=== PATIENT | female | born 1955 | race Caucasian/White ===

== ENCOUNTER 2024-06-19 09:55 | Outpatient (AMB) | payer MEDICARE, SELFPAY ==
--- NOTE | 2024-06-19 10:01 | A.OFFPC_ITS ---
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: No Is last menstrual period known: No Post menopausal: No Patient : No Allergies No Known Allergies Allergy (Verified 06/19/24 10:07) Tobacco use date assessed: 06/19/24 Fall risk assessment: No Falls in past year Last assessed Fall Risk: 06/19/24 Dental Screening Dental Screen Date: 06/19/24 Did you have a dental visit in the last 12 months?: Yes Did you have a dental problem in the last 6 months where you did not have access to dental care?: No Was dental information given to patient?: Patient has dentist HPI HPI Comments History of Present Illness Details This is a 68-year-old female with a past medical history of chronic insomnia, IBS, frequent UTIs and dense breast tissue presenting for follow up. She transferred from my panel at [facility]. Her daughter just gave to another grandchild. Now she has 2 granddaughters and 2 grandsons. The patient and her purchased a place down in [place]. They are retired. She does not have any immediate plans to travel there, but she is taking a trip out to [place] to visit family. She has a history of right cataract removal. She is having her left cataract removed with Dr. York on 06/24/2024. Osteopenia-she just had a bone density exam ordered by her farmworker vegetable, Sami Pascual. She is just waiting for the results. She also had a screening mammogram and screening bilateral breast ultrasound which showed no evidence of malignancy. IBS-the patient is followed by Rodriuge Lo. She is currently on Colace and psyllium, but she does not feel like it is helping very much so the message and delivery service pricer has requested lab tests and stool samples. Insomnia-she continues to struggle with this. It worsened after menopause. She has tried sleep hygiene, homeopathic remedies, THC gummies, melatonin, trazodone, benazepril. She is currently on amitriptyline. It is not helping. She takes 10 mg at night. Frequent UTIs-patient was seen by Urology and Urogynecology more than once. She also had a CT scan of the abdomen and pelvis within the past year which showed no pathologic cause for UTIs. ROS: Constitutional: No unexplained weight loss, fever, chills, fatigue or night sweats. Respiratory: No shortness of breath Cardiovascular: No chest pain Neurologic: No headache, dizziness, syncope, Psychiatric: No depression or anxiety. No SI/HI. Physical exam: Constitutional: Alert, in no distress. Respiratory: Clear to auscultation. Cardiovascular: S1 S2 regular. No murmurs Neurologic: No focal neurological deficits. Extremities: Warm and well perfused. No clubbing, cyanosis or edema. Psychiatric: Normal mood and affect [facility] Medical History (Updated 06/19/24 @ 10:54 by WILLIS Marrero) Dense breast tissue Frequent UTI Insomnia Cataract Irritable bowel syndrome (IBS) Surgical History (Updated 06/19/24 @ 10:26 by WILLIS Marrero) H/O bilateral cataract extraction Family History (Updated 06/19/24 @ 10:12 by Mansi Hall) Father Alcohol abuse Cancer Sister Cancer Social History Housing: House Patient Tobacco Use Status: Never used Tobacco e-Cigarette/Vaping Use: Never Used Second Hand Smoke Exposure: No service: No Current occupational status: retired Current occupational exposures/hazards: No Cognitive needs: No Hearing needs: No Vision needs: Yes Questionnaire PHQ-9 Over the last 2 weeks, how often have you been bothered by any of the following problems? 1. Little interest or pleasure in doing things: not at all 2. Feeling down, depressed, or hopeless: not at all 3. Trouble falling or staying asleep, or sleeping too much: several days 4. Feeling tired or having little energy: not at all 5. Poor appetite or overeating: not at all 6. Feeling bad about yourself - or that you are a failure or have let yourself or your family down: not at all 7. Trouble concentrating on things, such as reading the newspaper or watching television: not at all 8. Moving or speaking so slowly that other people could have noticed. Or the opposite - being so fidgety or restless that you have been moving around a lot more than usual: not at all 9. Thoughts that you would be better off or of hurting yourself in some way: not at all Total score: 1 Depression Screening Interpretation: Negative Depression Screening Done: Yes 02133 - PHQ-9 Billing: Yes Source: Developed by Drs. Jose Chong, Jacqueline Rice, Clarence Alba and colleagues, with an educational sal from [employer]. Thrive Questionnaire Date Thrive assessed: 06/19/24 I am a: Patient What is your living situation today?: I have a steady place to live Within the past 12 months, did the food you bought not last and you didn't have the money to get more?: Never true Within the past 12 months, did you worry whether your food would run out before you got money to buy more?: Never true Do you have trouble paying for medicines?: No Do you have trouble getting transportation to medical appointments?: No Do you have trouble paying your heating and electricity bill?: No Do you have trouble taking care of your child, family member or friend?: No Do you have trouble with day-to-day activities such as bathing, preparing meals, shopping, managing finances, etc.?: No Are you currently unemployed and looking for a job?: No Are you interested in more education?: No Please select the resources that you would like help with: None Currently or been in a relationship where the following occur: No concerns reported THRIVE Score: 0 AUDIT C Alcohol Use Questionnaire (AUDIT-C) 1. How often do you have a drink containing alcohol?: Never Total Score: 0 Score Reviewed/Action Taken: Yes WADE-7 AMB Questionnaire WADE-7 Date WADE - 7 assessed: 06/19/24 Feeling nervous, anxious, or on edge: 0 = Not at all Not being able to stop or control worryin = Not at all Worrying too much about different things: 0 = Not at all Trouble relaxin = Several days Being so restless that it is hard to sit still: 1 = Several days Becoming easily annoyed or irritable: 1 = Several days Feeling afraid as if something awful might happen: 0 = Not at all Total WADE-7 score (0-4 normal; 5-9 mild; 10-14 moderate; 15-21 severe): 3 Source: Developed by Drs. Jose Chong, Jacqueline Rice, Clarence Alba and colleagues, with an educational sal from [employer]. WADE-7 Assessment Billing WADE-7 Assessment Tool: WADE-7 Assessment 63607 Physical exam (Primary Care) Vital Signs: Last Vital Signs Temp 97.5 F 06/19/24 10:13 Pulse 63 06/19/24 10:13 Resp 16 06/19/24 10:13 BP 132/80 06/19/24 10:13 Pulse Ox 99 06/19/24 10:13 Oxygen Delivery Method Room Air 06/19/24 10:13 BMI result Body Mass Index 23.6 Tobacco/Smoking Status: Tobacco use Status Tobacco use date assessed 06/19/24 06/19/24 10:09 Patient Tobacco Use Status Never used Tobacco 06/19/24 10:09 e-Cigarette/Vaping Use Never Used 06/19/24 10:09 PHQ-9: PHQ-9 Score PHQ-9: Total score 1 06/19/24 10:24 Depression Screening Interpretation: Negative Thrive Assessment: Date of Thrive Assessment Date Thrive assessed 06/19/24 06/19/24 10:16 Currently or been in a relationship where the following occur: No concerns reported Assessment and Plan Assessment & Plan (1) Insomnia: Code(s): G47.00 - Insomnia, unspecified Qualifiers: Insomnia type: primary Qualified Code(s): F51.01 - Primary insomnia Plan: Because the patient has failed first-line treatments we will proceed with a trial of Ambien 5 mg. Instructed to take this immediately before bedtime. We discussed it is a habit forming controlled substance. We discussed side effects including abnormal sleep behaviors and parasomnias. Patient advised not to drink alcohol with this medication. She needs to plan for at least 8 hours of sleep after taking the medication. If it is ineffective or she does not tolerate it we can consider trying Lunesta. (2) Irritable bowel syndrome (IBS): Code(s): K58.9 - Irritable bowel syndrome without diarrhea Qualifiers: Irritable bowel syndrome type: with constipation Qualified Code(s): K58.1 - Irritable bowel syndrome with constipation Plan: Patient will follow up with her message and delivery service pricer and have testing done that was ordered by her. Plan Follow up in 6 months for annual wellness exam. Medications: New zolpidem (Ambien) 5 mg PO BEDTIME PRN 30 tabs 0RF insomnia Coding Level of Care Code Est Pt Level 4 (76607) Complex EM visit Add On G2211 Diagnoses Primary insomnia F51.01 Insomnia type: primary Irritable bowel syndrome with constipation K58.1 Irritable bowel syndrome type: with constipation Additional Codes WADE-7 Assessment Billing - WADE-7 Assessment Tool: WADE-7 Assessment [id number] ([id number])
[2024-06-19 10:13] VITALS: BP 132/80; PULSE 63; RESP 16; TEMP 36.4; O2SAT 99; BMI 23.6
== END 2024-06-19 10:48 | disposition home or self-care (01) ==
PROVIDERS: PCP Physician Assistant Medical; Visit Provider Physician Assistant Medical
DX: F51.01 Primary insomnia (principal); K58.1 Irritable bowel syndrome with constipation
CPT/HCPCS: 99214; G2211

== ENCOUNTER 2024-06-23 13:22 | Outpatient (REF) | payer MEDICARE, SELFPAY ==
[2024-06-23 17:39] LABS: Hematocrit 36.4 % (37.0-47.0); Hemoglobin 12.4 g/dl (12.0-16.0); Mean Corpuscular HGB Conc 34.1 g/dl (31.0-35.0); Mean Corpuscular Hemoglobin 32.8 pg (27.0-33.0); Mean Corpuscular Volume 96.3 fL (80.0-98.0); Mean Platelet Volume 9.3 fL (9.4-12.3); Platelet Count 283 X10*3/uL (160-400); Red Blood Count 3.78 X10*6/uL (4.20-5.50); Red Cell Distribution Width 12.4 % (11.0-16.0)
[2024-06-23 18:07] LABS: Alanine Aminotransferase 13 U/L (0-31); Albumin Level 4.3 g/dL (3.5-5.0); Alkaline Phosphatase 65 U/L (39-117); Anion Gap 15 (12-20); Aspartate Amino Transferase 16 U/L (5-31); Blood Urea Nitrogen 13 mg/dL (9-16); Calcium 9.7 mg/dL (8.4-10.2); Carbon Dioxide 25 mmol/L (22-29); Chloride 101 mmol/L (96-108); Cholesterol 259 mg/dL (<200); Estimated Glomerular Filt Rate > 60; Glucose Random 99 mg/dL (60-115); HDL Cholesterol 77 mg/dL (>40); LDL Cholesterol Calculated 170 mg/dL (<100); Potassium 4.1 mmol/L (3.3-5.1); Sodium 137 mmol/L (135-145); Total Protein 6.9 g/dL (6.5-8.0); Triglycerides 60 mg/dL (<150)
[2024-06-27 05:25] LABS: VITAMIN D (1,25 OH) D3 44 pg/mL; Vit D (1,25-Dihydroxy) Total 44 pg/mL (18-72); Vitamin D (1,25 OH) D2 <8 pg/mL
== END 2024-06-23 13:23 | disposition home or self-care (01) ==
LOC: HO.WFDLDS 13:22
PROVIDERS: Visit Provider Physician Assistant Medical
DX: M85.80 Other specified disorders of bone density and structure, unspecified site (principal); N39.0 Urinary tract infection, site not specified; F51.01 Primary insomnia; Z13.6 Encounter for screening for cardiovascular disorders
CPT/HCPCS: 36415; 80053; 80061; 82652; 85027

== ENCOUNTER 2024-07-03 12:50 | Outpatient (AMB) | payer MEDICARE, SELFPAY ==
--- NOTE | 2024-07-03 12:41 | MHC.PC.OV ---
Intake Visit Reasons: Discuss alternative medication for sleep Intake Note: Discuss alternative medication for sleep. Allergies No Known Allergies Allergy (Verified 07/03/24 12:44) Tobacco use date assessed: 06/19/24 Dental Screening Dental Screen Date: 06/19/24 HPI HPI Comments History of Present Illness Details This is a 68-year-old female with a past medical history of frequent UTIs, insomnia and hyperlipidemia presenting to discuss her sleep medication. The patient tried Ambien. It was not effective, and she feels more irritable. She stopped taking it Sunday. We reviewed her cholesterol profile again. LDL 170. ASCVD risk score is 6.6%. Her mother has high cholesterol. Patient does not smoke. She follows a healthy diet. She is not overweight. ROS: Constitutional: No unexplained weight loss, fever, chills Psychiatric: No SI/HI. PFSH Medical History (Updated 06/24/24 @ 09:24 by WILLIS Marrero) Pure hypercholesterolemia Abnormal CBC Osteopenia Dense breast tissue Frequent UTI Insomnia Cataract Irritable bowel syndrome (IBS) Surgical History (Updated 06/19/24 @ 10:26 by WILLIS Marrero) H/O bilateral cataract extraction Family History (Updated 06/19/24 @ 10:12 by Mansi Hall) Father Alcohol abuse Cancer Sister Cancer Social History Housing: House Patient Tobacco Use Status: Never used Tobacco e-Cigarette/Vaping Use: Never Used Second Hand Smoke Exposure: No service: No Current occupational status: retired Current occupational exposures/hazards: No Cognitive needs: No Hearing needs: No Vision needs: Yes Questionnaire Thrive Questionnaire Date Thrive assessed: 06/19/24 WADE-7 AMB Questionnaire WADE-7 Date WADE - 7 assessed: 06/19/24 Source: Developed by Drs. Jose Chong, Jacqueline Rice, Clarence Alba and colleagues, with an educational sal from [employer]. Physical exam (Primary Care) Tobacco/Smoking Status: Tobacco use Status Tobacco use date assessed 06/19/24 07/03/24 12:42 Patient Tobacco Use Status Never used Tobacco 07/03/24 12:42 e-Cigarette/Vaping Use Never Used 07/03/24 12:42 Thrive Assessment: Date of Thrive Assessment Date Thrive assessed 06/19/24 07/03/24 12:42 Telehealth Telehealth Telehealth Platform: Telephone Location of provider rendering services: practice address Location of patient: address on file Patient Identification confirmed using: Name, : Yes Telehealth method: voice only Patient verbally consented to treatment: Yes Patient verbally consented to billing insurance company: Yes Patient informed of any privacy concerns related to visit: Yes Minutes spent on Phone/Video with Pt.: 10 Assessment and Plan Assessment & Plan (1) Pure hypercholesterolemia: Code(s): E78.00 - Pure hypercholesterolemia, unspecified (2) Insomnia: Code(s): G47.00 - Insomnia, unspecified Qualifiers: Insomnia type: primary Qualified Code(s): F51.01 - Primary insomnia Plan The patient and I had a discussion regarding treatment of elevated cholesterol and statins. Patient agreeable to low-dose statin trial. Sent atorvastatin 10 mg at bedtime. Side effects and administration reviewed. Return in 6 weeks to the lab to check LFTs and lipid panel. Reviewed sleep hygiene. Patient defers referral to sleep Medicine. She will try Lunesta 1 mg nightly. Side effects and administration reviewed. Advised patient to take it immediately before bedtime and schedule at least 8 hours for sleep following administration. Do not drive or operate heavy machinery. Do not drink alcohol with this medicine. She can call after trying Lunesta to follow up. Orders: Orders Alanine Aminotransferase Today R79.89 - Other specified abnormal findings of blood chemistry Aspartate Amino Transferase Today R79.89 - Other specified abnormal findings of blood chemistry Lipid Panel 6 Weeks E78.00 - Pure hypercholesterolemia, unspecified Medications: New eszopiclone (Lunesta) 1 mg PO BEDTIME 7 tabs 0RF insomnia atorvastatin 10 mg PO BEDTIME 90 tabs 0RF Discontinued zolpidem (Ambien) Discontinued Reason: Doctor's Order 5 mg PO BEDTIME PRN 30 tabs 0RF insomnia Coding Level of Care Code Tele Est Pt Level 3 (30635) Complex EM visit Add On G2211 Diagnoses Pure hypercholesterolemia E78.00 Primary insomnia F51.01 Insomnia type: primary
== END 2024-07-03 14:14 | disposition home or self-care (01) ==
LOC: HO.HMGFM 12:51
PROVIDERS: PCP Physician Assistant Medical; Visit Provider Physician Assistant Medical
DX: E78.00 Pure hypercholesterolemia, unspecified (principal); F51.01 Primary insomnia
CPT/HCPCS: 99441

== ENCOUNTER 2024-12-09 10:56 | Outpatient (REF) | payer MEDICARE, SELFPAY ==
[2024-12-09 14:07] LABS: Appearance Urine Clear; Color Urine Yellow; Glucose Urine UA Negative (Negative); Leukocyte Esterase Urine Small (1+) (Negative); Nitrite Urine Positive (Negative); UMIC TRIGGER UA YES; Urine Blood Trace (Negative); Urine Ketones Negative (Negative); Urine Protein Negative (Neg-Trace)
[2024-12-09 14:10] LABS: Bacteria Urine 4+ (None Seen); Hyaline Casts Urine 0-2 /LPF (0-2); Squamous Epithelial Cell Urine 0-2 /HPF (0-2)
== END 2024-12-09 10:57 | disposition home or self-care (01) ==
LOC: HO.WFDLDS 10:56
PROVIDERS: Visit Provider Physician Assistant Medical
DX: R39.9 Unspecified symptoms and signs involving the genitourinary system (principal)
CPT/HCPCS: 81001; 87086; 87088; 87186

== ENCOUNTER 2024-12-22 08:22 | Outpatient (AMB) | payer MEDICARE, SELFPAY ==
[2024-12-22 08:30] VITALS: BP 120/80; PULSE 72; O2SAT 100; BMI 24.0
--- NOTE | 2024-12-22 08:30 | AM.OFFVISMDC ---
Intake Vital Signs 12/22/24 08:30 Height 5 ft 2 in Weight 131 lb 2 oz BMI 24.0 BP 120/80 Blood Pressure Location Rt brachial Position Sitting Pulse 72 Pulse Source Pulse Oximeter Pulse Oximetry (%) 100 Oxygen Delivery Method Room Air Intake Visit Reasons: annual wellness visit Allergies No Known Allergies Allergy (Verified 12/22/24 08:31) Medication List - Last Reconciled 12/22/24 by WILLIS Marrero cephalexin 500 mg PO TID 10 days mupirocin 2% 1 appl topical BID 10 days HPI HPI Comments History of Present Illness Details This is a 69-year-old female with a past medical history of chronic insomnia, IBS, frequent UTIs and dense breast tissue presenting for an annual wellness visit. She has several concerns today. Patient has developed a rash that started in January or February of 2023. She says there are little red bumps on her upper body only which then open up in 2 small ulcers and heel. They leave small scars. The ones on her back itch. She has a applied mant-mcs-bjrmyoz remedies. She is using products without fragrance and tried switching her soap and detergents, but nothing improves it. She has a community health specialist, but she has not discussed it with them. She has chronic fatigue. She has chronic insomnia. She has tried sleep hygiene, homeopathic remedies, THC gummies, Lunesta, Ambien, melatonin, trazodone, amitriptyline. They are not effective. She had bilateral cataracts removed with Dr. York last year. Patient wants to get her prescription glasses adjusted because it is difficult to walk down the stairs when she has her glasses on. She has concerns about joint pains over the past month. She says her knees, elbow and her tailbone hurt. She says when she is walking outside in the winter she uses a walking stick, but after awhile her elbow aches so that she can not keep the walking stick in the same hand. In 2018 she fell and bruised her tailbone. The pain resolved, but it came back during the past month. She did fall a couple of weeks ago on the stairs, but there was no neck or head trauma, and no loss of consciousness. The tailbone pain and other joint pain started before this fall. Denies joint swelling or redness. Her mother has rheumatoid arthritis. Patient tried Tylenol which worked for a little while. A heating pad helps. She is not having pain in her shoulders or hips and denies weakness. No numbness or tingling. The patient was supposed to have blood work done for reassessment of mild anemia and a mildly decreased white blood cell count in May of 2024. The labs were not completed. Osteopenia-she has a bone density exam through her gynecology office where she sees Haleigh Pascual. She had an ultrasound and mammogram last week on the left breast which showed 2 cysts. Screening mammogram up-to-date. IBS-the patient is followed by Rodrigue Lo. She tried Colace and psyllium. Patient reports she had a colonoscopy 2 years ago, and she is up-to-date. She had stool samples done for assessment of bloating and flatus. Frequent UTIs-patient was seen by Urology and Urogynecology more than once. She also had a CT scan of the abdomen and pelvis in the past 2 years. Hyperlipidemia-she stopped atorvastatin months ago because she did not feel well on it. ROS: Constitutional: No unexplained weight loss, fever, chills or night sweats. +chronic fatigue Eyes: No vision changes, blurry vision, double vision, eye pain, eye redness, eye discharge. ENT: No hearing loss, sneezing, congestion, runny nose or sore throat. Respiratory: No shortness of breath, cough or sputum production. Cardiovascular: No chest pain, chest pressure or chest discomfort. No palpitations or pedal edema. Gastrointestinal: No anorexia, nausea, vomiting or diarrhea. No abdominal pain or blood in stool. Genitourinary: No dysuria, hematuria, urinary frequency. Neurologic: No headache, dizziness, syncope, unilateral weakness, tremors, numbness or tingling. No seizures. Musculoskeletal: See HPI Hematologic/Lymphatics: No bleeding or bruising. No painful lymph nodes. Skin: See HPI Endocrine: No cold or heat intolerance. No polyuria or polydipsia. Psychiatric: No depression or anxiety. No SI/HI. Physical exam: Constitutional: Alert, in no distress. Head: Normocephalic. Eyes: Pupils are equal, round and reactive to light. Extraocular muscles intact. Ear, Nose and Throat: Canals clear. TMs normal. Normal nasal mucosa. No nasal discharge. No oral lesions. Neck: Supple, Full range of motion. No lymphadenopathy. No palpable thyroid masses. Respiratory: Clear to auscultation. Cardiovascular: S1 S2 regular. No murmurs. No carotid bruits. Gastrointestinal: Abdomen soft, non-tender, non-distended. Normal bowel sounds. No palpable masses. Genitourinary: No costovertebral angle tenderness. Neurologic: No focal neurological deficits. Symmetric patellar reflexes. Moves all extremities spontaneously. Sensation intact bilaterally. Strength 5/5 bilaterally. No ataxia. Skin: 3-5 mm erythematous papules and some open sores on the trunk, arms, back of the neck and 1 on the right ear. No pustules or weeping or discharge. Palms and face spared. Musculoskeletal: Knees and elbows with full range of motion, nontender, no crepitus and strength 5/5 bilaterally. She has tenderness of the coccygeal area without any bruising, erythema or swelling. Extremities: Warm and well perfused. No clubbing, cyanosis or edema. 3+ peripheral pulses bilaterally. Psychiatric: Normal mood and affect Nails: There are vertical striations on all of the fingernails. [facility] [place] Medical History (Updated 12/22/24 @ 09:39 by WILLIS Marrero) Longitudinal striation of nail Medicare annual wellness visit, subsequent Multiple joint pain Dermatitis Pure hypercholesterolemia Abnormal CBC Osteopenia Dense breast tissue Frequent UTI Insomnia Cataract Irritable bowel syndrome (IBS) Surgical History H/O bilateral cataract extraction Family History Father Alcohol abuse Cancer Sister Cancer Social History Housing: House Patient Tobacco Use Status: Never used Tobacco e-Cigarette/Vaping Use: Never Used Second Hand Smoke Exposure: No service: No Current occupational status: retired Current occupational exposures/hazards: No Cognitive needs: No Hearing needs: No Vision needs: Yes Questionnaire Medicare Wellness Checkup [age] What gender do you identify with?: female During the past 4 weeks, how much have you been bothered by emotional problems such as feeling anxious, depressed, irritable, sad or downhearted, and blue?: not at all During the past 4 weeks, has your physical & emotional health limited your social activities with family, friends, neighbors, or groups?: not at all During the past 4 weeks, how much bodily pain have you generally had?: moderate pain During the past 4 weeks, was someone available to help you if you needed & wanted help?: yes, as much as I wanted During the past 4 weeks, what was the hardest physical activity you could do for at least 2 minutes?: moderate Can you get to places out of walking distance without help? (For eg., can you travel alone on buses, taxis or drive your car?): Yes Can you go shopping for groceries or clothes without someone's help?: Yes Can you prepare your own meals?: Yes Can you do your housework without help?: Yes Because of any health problems, do you need the help of another person with your personal care needs such as eating, bathing, dressing or getting around the house?: No Can you handle your own money without help?: Yes During the past 4 weeks, how would you rate your health in general?: fair During the past 4 weeks how have things been going for you?: pretty well Are you having difficulties driving your car?: no Do you always fasten your seat belt when you are in a car?: yes, usually During past 4 weeks, have you been bothered by the following: never: Sexual problems?, Trouble eating well?, Teeth or denture problems? and Problems using the telephone?, seldom: Falling or dizzy when standing up and always: Tiredness or fatigue? Have you fallen 2 or more times in the past year?: Yes Are you afraid of falling?: No Are you a smoker?: no During the past 4 weeks, how many drinks of wine, beer, or other alcoholic beverages did you have?: no alcohol at all Do you exercise for about 20 minutes 3 or more times a week?: yes, all the time Have you been given information to help with the following?: no: Hazards in your house that might hurt you? and no: Keeping track of your medications? How often do you have trouble taking medicines the way you have been told to take them?: I do not have to take medicine How confident are you that you can control & manage most of your health problems?: very confident What is your race?: White PHQ-9 Over the last 2 weeks, how often have you been bothered by any of the following problems? 1. Little interest or pleasure in doing things: not at all 2. Feeling down, depressed, or hopeless: not at all 3. Trouble falling or staying asleep, or sleeping too much: several days 4. Feeling tired or having little energy: not at all 5. Poor appetite or overeating: not at all 6. Feeling bad about yourself - or that you are a failure or have let yourself or your family down: not at all 7. Trouble concentrating on things, such as reading the newspaper or watching television: not at all 8. Moving or speaking so slowly that other people could have noticed. Or the opposite - being so fidgety or restless that you have been moving around a lot more than usual: not at all 9. Thoughts that you would be better off or of hurting yourself in some way: not at all Total score: 1 Depression Screening Interpretation: Negative Depression Screening Done: Yes 51894 - PHQ-9 Billing: Yes Source: Developed by Drs. Jose Chong, Jacqueline Rice, Clarence Alba and colleagues, with an educational sal from [employer]. Physical Exam Vital Signs: Last Vital Signs Pulse 72 12/22/24 08:30 BP 120/80 12/22/24 08:30 Pulse Ox 100 12/22/24 08:30 Oxygen Delivery Method Room Air 12/22/24 08:30 BMI result Body Mass Index 24.0 Assessment & Plan Assessment & Plan (1) Medicare annual wellness visit, subsequent: Code(s): Z00.00 - Encounter for general adult medical examination without abnormal findings Plan: . 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 - Screening for colon cancer - Blood pressure screening - Cholesterol screening - Osteoporosis prevention including calcium/vitamin D intake, weight bearing exercise & smoking cessation - Nutritional and exercise counseling - Counseling of injury prevention including fire prevention, smoke alarms and seat belt usage - Screening for depression - Prevention of and/or testing for infectious diseases - Education about skin cancer - Recommendations about immunizations - Recommendation of an eye exam - Screening for substance abuse (2) Multiple joint pain: Code(s): M25.50 - Pain in unspecified joint Plan: Reviewed differential with the patient. Lab evaluation initially. Discussed x-rays of elbow and knees patient defers and would like to have lab work done 1st. She can continue to use Tylenol and a heating pad as needed for pain which helps. (3) Dermatitis: Code(s): L30.9 - Dermatitis, unspecified Plan: Skin rash of unknown etiology. Trial of Keflex and topical mupirocin. Patient also advised to contact Dermatology. Side effects and administration of antibiotics reviewed with the patient. (4) Pure hypercholesterolemia: Code(s): E78.00 - Pure hypercholesterolemia, unspecified Plan: Patient stopped up atorvastatin. Recheck lipid profile. Recommended Mediterranean diet. (5) Abnormal CBC: Code(s): R79.89 - Other specified abnormal findings of blood chemistry Plan: Patient will have lab work done today. (6) Longitudinal striation of nail: Code(s): L60.3 - Nail dystrophy Plan: Patient will have labs done today. (7) Insomnia: Code(s): G47.00 - Insomnia, unspecified Qualifiers: Insomnia type: primary Qualified Code(s): F51.01 - Primary insomnia Plan: Discussed there are alternative she could try like doxepin and mirtazapine, but we opted to defer this conversation until workup for her other symptoms is completed. Plan Follow up in 3 weeks. Orders: Orders Lipid Panel Today E78.00 - Pure hypercholesterolemia, unspecified, E78.5 - Hyperlipidemia, unspecified, L30.9 - Dermatitis, unspecified, M25.50 - Pain in unspecified joint, M85.80 - Other specified disorders of bone density and structure, unspecified site Vitamin B12 Today E78.00 - Pure hypercholesterolemia, unspecified, L30.9 - Dermatitis, unspecified, M25.50 - Pain in unspecified joint, M85.80 - Other specified disorders of bone density and structure, unspecified site, Z91.89 - Other specified personal risk factors, not elsewhere classified Vitamin D 25-OH (D2 and D3) Today E78.00 - Pure hypercholesterolemia, unspecified, L30.9 - Dermatitis, unspecified, M25.50 - Pain in unspecified joint, M85.80 - Other specified disorders of bone density and structure, unspecified site CYNDI Reflex Titer and Pattern Today E78.00 - Pure hypercholesterolemia, unspecified, L30.9 - Dermatitis, unspecified, M25.50 - Pain in unspecified joint, M85.80 - Other specified disorders of bone density and structure, unspecified site Rheumatoid Factor Today E78.00 - Pure hypercholesterolemia, unspecified, L30.9 - Dermatitis, unspecified, M25.50 - Pain in unspecified joint, M85.80 - Other specified disorders of bone density and structure, unspecified site C Reactive Protein Today E78.00 - Pure hypercholesterolemia, unspecified, L30.9 - Dermatitis, unspecified, M25.50 - Pain in unspecified joint, M85.80 - Other specified disorders of bone density and structure, unspecified site Amylase Today E78.00 - Pure hypercholesterolemia, unspecified, L30.9 - Dermatitis, unspecified, M25.50 - Pain in unspecified joint, M85.80 - Other specified disorders of bone density and structure, unspecified site IRON PROFILE Today E78.00 - Pure hypercholesterolemia, unspecified, L30.9 - Dermatitis, unspecified, M25.50 - Pain in unspecified joint, M85.80 - Other specified disorders of bone density and structure, unspecified site Ferritin Today E78.00 - Pure hypercholesterolemia, unspecified, L30.9 - Dermatitis, unspecified, M25.50 - Pain in unspecified joint, M85.80 - Other specified disorders of bone density and structure, unspecified site XR sacrum coccyx min 2V Today M53.3 - Sacrococcygeal disorders, not elsewhere classified Complete Blood Count Auto Diff Today E78.00 - Pure hypercholesterolemia, unspecified, L30.9 - Dermatitis, unspecified, M25.50 - Pain in unspecified joint, M85.80 - Other specified disorders of bone density and structure, unspecified site TSH reflex Free T4 Today E78.00 - Pure hypercholesterolemia, unspecified, L30.9 - Dermatitis, unspecified, M25.50 - Pain in unspecified joint, M85.80 - Other specified disorders of bone density and structure, unspecified site Comprehensive Met. Panel Today E78.00 - Pure hypercholesterolemia, unspecified, L30.9 - Dermatitis, unspecified, M25.50 - Pain in unspecified joint, M85.80 - Other specified disorders of bone density and structure, unspecified site Lyme IgG/IgM w/reflex to WB Today E78.00 - Pure hypercholesterolemia, unspecified, L30.9 - Dermatitis, unspecified, M25.50 - Pain in unspecified joint, M85.80 - Other specified disorders of bone density and structure, unspecified site Erythrocyte Sedimentation Rate Today E78.00 - Pure hypercholesterolemia, unspecified, L30.9 - Dermatitis, unspecified, M25.50 - Pain in unspecified joint, M85.80 - Other specified disorders of bone density and structure, unspecified site Lipase Today E78.00 - Pure hypercholesterolemia, unspecified, L30.9 - Dermatitis, unspecified, M25.50 - Pain in unspecified joint, M85.80 - Other specified disorders of bone density and structure, unspecified site Medications: New mupirocin 2% 1 appl topical BID 10 days 22 grams 0RF cephalexin 500 mg PO TID 10 days 30 caps 0RF Quality Reporting (2019) Depression/Bipolar (159/160/161/177) PHQ-9: Total score: 1 Coding Level of Care Code Medicare Subsequent (G0439) Est Pt Level 4 (50775) Diagnoses Medicare annual wellness visit, subsequent Z00.00 Multiple joint pain M25.50 Dermatitis L30.9 Pure hypercholesterolemia E78.00 Abnormal CBC R79.89 Longitudinal striation of nail L60.3 Primary insomnia F51.01 Insomnia type: primary Additional Codes PHQ-9 - 12579 - PHQ-9 Billing: Yes ([id number])
== END 2024-12-22 09:29 | disposition home or self-care (01) ==
PROVIDERS: PCP Physician Assistant Medical; Visit Provider Physician Assistant Medical
DX: Z00.00 Encounter for general adult medical examination without abnormal findings (principal); M25.50 Pain in unspecified joint; L30.9 Dermatitis, unspecified; E78.00 Pure hypercholesterolemia, unspecified; R79.89 Other specified abnormal findings of blood chemistry; L60.3 Nail dystrophy; F51.01 Primary insomnia

== ENCOUNTER 2024-12-22 09:51 | Outpatient (REF) | payer MEDICARE, SELFPAY ==
[2024-12-22 11:12] LABS: MANUAL DIFF FLAG NO
[2024-12-22 11:21] LABS: Basophils Percent Auto 0.2 % (0-2); Eosinophils Absolute Auto 0.1 X10*3/uL (0.0-0.4); Eosinophils Percent Auto 2.6 % (0-4); Hematocrit 39.9 % (37.0-47.0); Hemoglobin 13.6 g/dl (12.0-16.0); Imm Gran Abs Auto 0.02 X10*3/uL (0.00-0.03); Imm Gran Pct Auto 0.4 % (0.0-0.4); Lymphocytes Absolute Auto 1.1 X10*3/uL (1.2-4.9); Lymphocytes Percent Auto 21.6 % (20-40); Mean Corpuscular HGB Conc 34.1 g/dl (31.0-35.0); Mean Corpuscular Hemoglobin 32.3 pg (27.0-33.0); Mean Corpuscular Volume 94.8 fL (80.0-98.0); Mean Platelet Volume 9.1 fL (9.4-12.3); Monocytes Absolute Auto 0.4 X10*3/uL (0.1-1.2); Monocytes Percent Auto 7.5 % (2-11); Neutrophils Absolute Auto 3.4 x10*3/uL (2.0-8.3); Neutrophils Percent Auto 67.7 % (45-73); Platelet Count 315 X10*3/uL (160-400); Red Blood Count 4.21 X10*6/uL (4.20-5.50); Red Cell Distribution Width 12.3 % (11.0-16.0); White Blood Count 5.1 X10*3/uL (4.8-10.8)
[2024-12-22 12:07] LABS: Rheumatoid Factor < 13.0 IU/mL (<15.0)
[2024-12-22 12:09] LABS: Erythrocyte Sedimentation Rate 10 MM/HR (0-20)
[2024-12-22 12:28] LABS: Ferritin 78 ng/mL (10-250); TSH reflex Free T4 2.41 uIU/mL (0.32-4.0)
[2024-12-22 12:34] LABS: Folate 10.8 ng/mL (> or = 4.0); Vitamin B12 760 pg/mL (200-900)
[2024-12-22 12:46] LABS: Anion Gap 13 (12-20)
[2024-12-22 12:52] LABS: Alanine Aminotransferase 23 U/L (0-31); Albumin Level 4.5 g/dL (3.5-5.0); Alkaline Phosphatase 92 U/L (39-117); Amylase 48 U/L (28-100); Aspartate Amino Transferase 25 U/L (5-31); Blood Urea Nitrogen 13 mg/dL (9-16); Calcium 9.7 mg/dL (8.4-10.2); Carbon Dioxide 26 mmol/L (22-29); Chloride 105 mmol/L (96-108); Cholesterol 269 mg/dL (<200); Estimated Glomerular Filt Rate > 60; Glucose Random 100 mg/dL (60-115); HDL Cholesterol 88 mg/dL (>40); Iron 87 mcg/dL (30-160); LDL Cholesterol Calculated 166 mg/dL (<100); Lipase 28 U/L (8-78); Percent Iron Saturation 29 % (15-50); Potassium 4.1 mmol/L (3.3-5.1); Sodium 140 mmol/L (135-145); Total Iron Binding Capacity 298 mcg/dL (228-428); Triglycerides 77 mg/dL (<150); Unsaturated Iron Binding 211 ug/dL
[2024-12-23 13:58] LABS: Lyme Abs Screen <0.90 index
[2024-12-24 22:08] LABS: Vitamin D 25-OH, D2 <4 ng/mL; Vitamin D 25-OH, D3 19 ng/mL; Vitamin D 25-OH, Total 19 ng/mL (30-100)
[2024-12-25 10:58] LABS: Anti Nuclear Antibody Screen NEGATIVE (NEGATIVE)
== END 2024-12-22 09:52 | disposition home or self-care (01) ==
LOC: HO.WFDLDS 09:51
PROVIDERS: Visit Provider Physician Assistant Medical
DX: Z00.00 Encounter for general adult medical examination without abnormal findings (principal); M25.50 Pain in unspecified joint; L30.9 Dermatitis, unspecified; E78.00 Pure hypercholesterolemia, unspecified; R79.89 Other specified abnormal findings of blood chemistry; L60.3 Nail dystrophy; F51.01 Primary insomnia; M85.80 Other specified disorders of bone density and structure, unspecified site
CPT/HCPCS: 36415; 80053; 80061; 82150; 82306; 82607; 82728; 82746; 83540; 83690; 84443; 85025; 85652; 86038; 86140; 86431; 86617; 86618; 96127; 99212

== ENCOUNTER 2024-12-31 10:37 | Outpatient (REF) | payer MEDICARE, SELFPAY ==
--- NOTE | ~2024-12-31 | XR_ITS ---
EXAMINATION: XR SACRUM AND COCCYX CLINICAL INFORMATION: M53.3 - Sacrococcygeal disorders, not elsewhere classified COMPARISON: None available. TECHNIQUE: 2 views of the sacrum and 2 views of the coccyx were obtained. FINDINGS: No acute cortical disruption or gross malalignment. No lytic or blastic lesions. Sclerosis and the symphysis pubis and sacroiliac joints. Facet joint hypertrophy at L5-S1. XR/XR sacrum coccyx min 2V IMPRESSION: No acute fracture. Electronically signed by: Ibrahima Kim MD 01/02/2025 03:15 PM JONG
== END 2024-12-31 10:38 | disposition home or self-care (01) ==
LOC: HO.XRAY 10:37
PROVIDERS: PCP Physician Assistant Medical; Visit Provider Physician Assistant Medical
DX: M53.3 Sacrococcygeal disorders, not elsewhere classified (principal)
CPT/HCPCS: 72220

== ENCOUNTER → 2024-12-31 10:46 | Outpatient (BNV) | payer MEDICARE, SELFPAY | PROVIDERS: PCP Physician Assistant Medical; Visit Provider Radiology Diagnostic Radiology | DX: M46.98 Unspecified inflammatory spondylopathy, sacral and sacrococcygeal region (principal) | CPT/HCPCS: 72220 ==

== ENCOUNTER 2025-01-21 08:36 | Outpatient (REF) | payer MEDICARE, SELFPAY ==
[2025-01-21 11:19] LABS: Appearance Urine Clear; Color Urine Yellow; Glucose Urine UA Negative (Negative); Leukocyte Esterase Urine Small (1+) (Negative); Nitrite Urine Positive (Negative); UMIC TRIGGER UA YES; Urine Blood Trace (Negative); Urine Ketones Negative (Negative); Urine Protein Negative (Neg-Trace)
[2025-01-21 11:22] LABS: Bacteria Urine 4+ (None Seen); Hyaline Casts Urine 0-2 /LPF (0-2); RBC Urine 0-2 /HPF (0-2); Squamous Epithelial Cell Urine 0-2 /HPF (0-2)
== END 2025-01-21 08:37 | disposition home or self-care (01) ==
LOC: HO.WFDLDS 08:36
PROVIDERS: Visit Provider Physician Assistant Medical
DX: R39.9 Unspecified symptoms and signs involving the genitourinary system (principal)
CPT/HCPCS: 81001; 87086; 87088; 87186

== ENCOUNTER 2025-04-07 08:15 | Outpatient (REF) | payer MEDICARE, SELFPAY ==
[2025-04-07 11:27] LABS: MANUAL DIFF FLAG NO
[2025-04-07 11:32] LABS: Basophils Percent Auto 0.5 % (0-2); Eosinophils Absolute Auto 0.2 X10*3/uL (0.0-0.4); Eosinophils Percent Auto 4.3 % (0-4); Hematocrit 37.7 % (37.0-47.0); Hemoglobin 12.6 g/dl (12.0-16.0); Imm Gran Abs Auto 0.01 X10*3/uL (0.00-0.03); Imm Gran Pct Auto 0.3 % (0.0-0.4); Lymphocytes Percent Auto 26.1 % (20-40); Mean Corpuscular HGB Conc 33.4 g/dl (31.0-35.0); Mean Corpuscular Hemoglobin 32.1 pg (27.0-33.0); Mean Corpuscular Volume 95.9 fL (80.0-98.0); Mean Platelet Volume 9.5 fL (9.4-12.3); Monocytes Absolute Auto 0.3 X10*3/uL (0.1-1.2); Monocytes Percent Auto 7.8 % (2-11); Neutrophils Absolute Auto 2.3 x10*3/uL (2.0-8.3); Platelet Count 254 X10*3/uL (160-400); Red Blood Count 3.93 X10*6/uL (4.20-5.50); Red Cell Distribution Width 12.9 % (11.0-16.0); White Blood Count 3.7 X10*3/uL (4.8-10.8)
[2025-04-07 11:53] LABS: Alanine Aminotransferase 14 U/L (0-31); Aspartate Amino Transferase 18 U/L (5-31); Cholesterol 266 mg/dL (<200); HDL Cholesterol 74 mg/dL (>40); Iron 81 mcg/dL (30-160); LDL Cholesterol Calculated 177 mg/dL (<100); Percent Iron Saturation 31 % (15-50); Total Iron Binding Capacity 264 mcg/dL (228-428); Triglycerides 78 mg/dL (<150); Unsaturated Iron Binding 183 ug/dL
[2025-04-07 12:09] LABS: Ferritin 55 ng/mL (10-250)
[2025-04-07 12:18] LABS: Vitamin B12 709 pg/mL (200-900)
[2025-04-12 16:23] LABS: Vitamin D 25-OH, D2 <4 ng/mL; Vitamin D 25-OH, D3 30 ng/mL; Vitamin D 25-OH, Total 30 ng/mL (30-100)
== END 2025-04-07 08:16 | disposition home or self-care (01) ==
LOC: HO.WFDLDS 08:15
PROVIDERS: Visit Provider Physician Assistant Medical
DX: E78.5 Hyperlipidemia, unspecified (principal); R79.89 Other specified abnormal findings of blood chemistry; E78.00 Pure hypercholesterolemia, unspecified; L30.9 Dermatitis, unspecified; M25.50 Pain in unspecified joint; M85.80 Other specified disorders of bone density and structure, unspecified site; Z91.89 Other specified personal risk factors, not elsewhere classified; E55.9 Vitamin D deficiency, unspecified
CPT/HCPCS: 36415; 80061; 82306; 82607; 82728; 83540; 84450; 84460; 85025

== ENCOUNTER 2025-04-09 10:50 | Outpatient (AMB) | payer MEDICARE, SELFPAY ==
--- NOTE | 2025-04-09 10:53 | A.OFFPC_ITS ---
Vital Signs 04/09/25 10:59 Height 5 ft 2 in Weight 123 lb 8 oz BMI 22.6 BP 100/62 Blood Pressure Location Rt brachial Position Sitting Respiration 16 Pulse 73 Pulse Source Pulse Oximeter Temp 97.9 F Temp Source Temporal Artery Scan Pulse Oximetry (%) 98 Oxygen Delivery Method Room Air Intake Visit Reasons: 30 min follow up multiple concerns Intake Note: Yvrose presents in the office today for a follow up. Allergies No Known Allergies Allergy (Verified 04/09/25 10:55) Medication List - Last Reconciled 04/09/25 by WILLIS Marrero barium sulfate 2.1%(w/v),2.0%(w/w) Follow instructions per radiology. cholecalciferol (vitamin D3) (Vitamin D3) 2,000 units PO DAILY esomeprazole magnesium (Nexium 24HR) 20 mg PO DAILY rosuvastatin 10 mg PO BEDTIME triamcinolone acetonide 0.1% 1 appl topical BID 10 days Tobacco use date assessed: 04/09/25 Dental Screening Dental Screen Date: 04/09/25 Did you have a dental visit in the last 12 months?: Yes Did you have a dental problem in the last 6 months where you did not have access to dental care?: No Was dental information given to patient?: Patient has dentist HPI HPI Comments History of Present Illness Details This is a 69-year-old female with a past medical history of anxiety with depression, vitamin-D deficiency, chronic dermatitis, osteopenia, hyperlipidemia, IBS and frequent UTIs presenting for follow up, but she has not been feeling well. She message me over the patient portal for a referral to behavioral health for anxiety and depression, but she said that she did not want to discuss the details because she could get to upset about everything. She has an appointment scheduled next week. She is working on her own coping strategies and meditating and doing yoga. I initially asked her about her weight loss because today she is 123 lb and 8 oz, and she is typically 128-130 lb. She was 131 lb and 2 oz at her visit in November. She has not been eating differently. She is walking for exercise which she always does. She endorses bloating which has been going on for awhile. She spoke about this with her software quality tester, Rodrigue Lo, in relation to IBS. She is up-to-date with colonoscopy. She is taking Culturelle. Reports 1 day last week where she had vomiting all day, and yesterday she had frequent, loose bowel movements. This is better today. Denies abdominal pain and acid reflux. She does tell me that she has been having episodes of chest pressure described as central and a 4 or 5/10 associated with pain in both of her ears. This lasts about 10 minutes and subsides. She has had 3 episodes per week. She endorsed it while she was at the visit, but it went away over the course of us talking. She says it helps to sit up when she has it. It is associated with dizziness. It does not happen when she is walking for exercise. Denies shortness of breath, diaphoresis, radiation down the arms, numbness or tingling. Denies family history of cardiovascular disease. Nonsmoker. She has hyperlipidemia, and she was working on lifestyle modifications, but her LDL cholesterol is still significantly elevated. Patient reports this is hereditary. No hypertension or diabetes. Patient says another unusual symptom is bilateral breast tenderness for the past month. She reports just having a mammogram recently done at [facility], and they had to do a follow up ultrasound, but the findings were considered benign. She saw Dermatology at the end of February for dermatitis on her trunk, and she was put on prednisone, but it has not helped. She has a follow up scheduled in April. We had also trialed oral antibiotics for this. She had blood work done yesterday which showed white blood cell count is mildly decreased at 3.7 and red blood cell count 3.93, normal hemoglobin 12.6, hematocrit 37.7, platelets 254,000. Iron and ferritin normal. AST and ALT and B12 normal. Vitamin-D level is pending. ROS: Constitutional: No fevers, chills or night sweats Eyes: No vision changes, blurry vision, double vision, eye pain. Respiratory: No shortness of breath, cough or sputum production. Cardiovascular: No palpitations or pedal edema Gastrointestinal: No anorexia, nausea, blood in stools or abdominal pain. See HPI Genitourinary: No dysuria, hematuria, urinary frequency. Neurologic: No headache, blackout, seizures, tremors, syncope, unilateral weakness, ataxia, numbness or tingling in the extremities. Hematologic/Lymphatics: No bleeding or bruising. Skin: see HPI Endocrine: No cold or heat intolerance. No polyuria or polydipsia. Psychiatric: No SI/HI. Physical exam: Constitutional: Alert, in no distress. Eyes: Pupils are equal, round and reactive to light. Extraocular muscles intact. Neck: Supple, Full range of motion. No lymphadenopathy. No palpable thyroid masses. Respiratory: Clear to auscultation. Cardiovascular: S1 S2 regular. No murmurs. No carotid bruits. Chest: Nontender Gastrointestinal: Abdomen soft, non-tender, non-distended. Normal bowel sounds. No palpable masses. Genitourinary: No costovertebral angle tenderness. Neurologic: No focal neurological deficits Skin: Excoriated papular rash on the trunk Breasts: Patient declined graphic artist. No axillary adenopathy bilaterally. No nipple discharge. No palpable masses. Musculoskeletal: No gross deformities. Normal range of motion. Calves nontender. Extremities: Warm and well perfused. No clubbing, cyanosis or edema. Intact peripheral pulses bilaterally. Psychiatric: Normal mood and affect [facility] Medical History (Updated 04/09/25 @ 14:07 by WILLIS Marrero) Weight loss Abdominal bloating Chest pressure Anxiety and depression Vitamin D deficiency Longitudinal striation of nail Medicare annual wellness visit, subsequent Multiple joint pain Dermatitis Pure hypercholesterolemia Abnormal CBC Osteopenia Dense breast tissue Frequent UTI Insomnia Cataract Irritable bowel syndrome (IBS) Surgical History H/O bilateral cataract extraction Family History Father Alcohol abuse Cancer Sister Cancer Social History (Updated 04/09/25 @ 10:58 by Alice Corrales MA) Housing: House Alcohol intake: current Patient Tobacco Use Status: Never used Tobacco e-Cigarette/Vaping Use: Never Used Second Hand Smoke Exposure: No service: No Current occupational status: retired Current occupational exposures/hazards: No Cognitive needs: No Hearing needs: No Vision needs: Yes Questionnaire PHQ-9 Over the last 2 weeks, how often have you been bothered by any of the following problems? 1. Little interest or pleasure in doing things: not at all 2. Feeling down, depressed, or hopeless: not at all 3. Trouble falling or staying asleep, or sleeping too much: not at all 4. Feeling tired or having little energy: not at all 5. Poor appetite or overeating: not at all 6. Feeling bad about yourself - or that you are a failure or have let yourself or your family down: not at all 7. Trouble concentrating on things, such as reading the newspaper or watching television: not at all 8. Moving or speaking so slowly that other people could have noticed. Or the opposite - being so fidgety or restless that you have been moving around a lot more than usual: not at all 9. Thoughts that you would be better off or of hurting yourself in some way: not at all Total score: 0 Depression Screening Interpretation: Negative Depression Screening Done: Yes 77893 - PHQ-9 Billing: Yes Source: Developed by Drs. Jose Chong, Jacqueline Rice, Clarence Alba and colleagues, with an educational sal from [employer]. Thrive Questionnaire Date Thrive assessed: 04/09/25 I am a: Patient What is your living situation today?: I have a steady place to live Within the past 12 months, did the food you bought not last and you didn't have the money to get more?: Never true Within the past 12 months, did you worry whether your food would run out before you got money to buy more?: Never true Do you have trouble paying for medicines?: No Do you have trouble getting transportation to medical appointments?: No Do you have trouble paying your heating and electricity bill?: No Do you have trouble taking care of your child, family member or friend?: No Do you have trouble with day-to-day activities such as bathing, preparing meals, shopping, managing finances, etc.?: No Are you currently unemployed and looking for a job?: No Are you interested in more education?: No Please select the resources that you would like help with: None Currently or been in a relationship where the following occur: No concerns reported THRIVE Score: 0 WADE-7 AMB Questionnaire WADE-7 Date AWDE - 7 assessed: 04/09/25 Feeling nervous, anxious, or on edge: 0 = Not at all Not being able to stop or control worryin = Not at all Worrying too much about different things: 0 = Not at all Trouble relaxin = Not at all Being so restless that it is hard to sit still: 0 = Not at all Becoming easily annoyed or irritable: 0 = Not at all Feeling afraid as if something awful might happen: 0 = Not at all Total WADE-7 score (0-4 normal; 5-9 mild; 10-14 moderate; 15-21 severe): 0 Source: Developed by Drs. Jose Chong, Jacuqeline Rice, Clarence andrews nd colleagues, with an educational sal from [employer]. WADE-7 Assessment Billing WADE-7 Assessment Tool: WADE-7 Assessment 77181 Physical exam (Primary Care) Vital Signs: Last Vital Signs Temp 97.9 F 04/09/25 10:59 Pulse 73 04/09/25 10:59 Resp 16 04/09/25 10:59 BP 100/62 04/09/25 10:59 Pulse Ox 98 04/09/25 10:59 Oxygen Delivery Method Room Air 04/09/25 10:59 BMI result Body Mass Index 22.6 Tobacco/Smoking Status: Tobacco use Status Tobacco use date assessed 04/09/25 04/09/25 11:02 Patient Tobacco Use Status Never used Tobacco 04/09/25 11:02 e-Cigarette/Vaping Use Never Used 04/09/25 11:02 PHQ-9: PHQ-9 Score PHQ-9: Total score 0 04/09/25 12:13 Depression Screening Interpretation: Negative Thrive Assessment: Date of Thrive Assessment Date Thrive assessed 04/09/25 04/09/25 11:02 Currently or been in a relationship where the following occur: No concerns reported Office Procedures EKG Details: EKG shows normal sinus rhythm with a ventricular rate of 73 beats per minute [id number], Complete Coding Level of Care Code Est Pt Level 5 (12575) Complex EM visit Add On G2211 Diagnoses Chest pressure R07.89 Pure hypercholesterolemia E78.00 Dermatitis L30.9 Anxiety and depression F41.9; F32.A Abdominal bloating R14.0 Weight loss R63.4 CPT Codes EKG - CPT: 73362-[id number], Complete ([id number]) Additional Codes WADE-7 Assessment Billing - WADE-7 Assessment Tool: WADE-7 Assessment 74947 ([id number]) PHQ-9 - 55951 - PHQ-9 Billing: Yes ([id number]) Time Spent (min) 50 Comment Direct patient care and completing documentation Assessment & Plan Assessment & Plan (1) Chest pressure: Code(s): R07.89 - Other chest pain Category: Medical (2) Pure hypercholesterolemia: Code(s): E78.00 - Pure hypercholesterolemia, unspecified Category: Medical (3) Dermatitis: Code(s): L30.9 - Dermatitis, unspecified Category: Medical (4) Anxiety and depression: Code(s): F41.9 - Anxiety disorder, unspecified; F32.A - Depression, unspecified Category: Medical (5) Abdominal bloating: Code(s): R14.0 - Abdominal distension (gaseous) Category: Medical (6) Weight loss: Code(s): R63.4 - Abnormal weight loss Category: Medical Plan 69-year-old female presenting for routine follow up with concerns about chest pressure, ongoing dermatitis and abdominal bloating with weight loss. EKG with no ischemic changes. Patient appears well. Vitals are normal. Signs and symptoms warranting ER evaluation reviewed with her. Risk factors for heart disease include age and hyperlipidemia. We will proceed with echocardiogram and stress test. Obtain chest x-ray today. Check lipase, amylase, H pylori stool antigen, BNP, D-dimer and troponin. She is going to follow up with Dermatology regarding chronic dermatitis. Given weight loss and abdominal bloating I am proceeding with CT abdomen and pelvis to check for malignancy. Hyperlipidemia -failed lifestyle modifications. Suspect hereditary component. Start rosuvastatin 10 mg every evening. Reviewed side effects. She will call the office if she has any difficulty on the medicine. Trial of Nexium 20 mg every morning once stool sample is collected to test for H pylori. Discussed anxiety and depression may be contributing to these symptoms. This can manifest physically, but I want to rule out underlying causes.. She is scheduled to see a new therapist next week. She will follow up with me in 1 month or sooner as needed. Orders: Orders AMB EKG-In Office Today R07.89 - Other chest pain CA stress test Today R94.31 - Abnormal electrocardiogram [ECG] [EKG] B Type Natriuretic Peptide Today R07.89 - Other chest pain D Dimer High Sensitivity Today R07.89 - Other chest pain CT abdomen pelvis w IV con Today E78.00 - Pure hypercholesterolemia, unspecified, F32.A - Depression, unspecified, F41.9 - Anxiety disorder, unspecified, L30.9 - Dermatitis, unspecified, R07.89 - Other chest pain, R14.0 - Abdominal distension (gaseous), R63.4 - Abnormal weight loss XR chest 2V Today R07.89 - Other chest pain CA echo transthoracic complete Today R07.89 - Other chest pain NM cardiolite stress test Today R07.89 - Other chest pain Troponin-I High Sensitivity Today R07.89 - Other chest pain Lipase Today R07.89 - Other chest pain Amylase Today R07.89 - Other chest pain UA w Microscopic Today R07.89 - Other chest pain, R39.9 - Unspecified symptoms and signs involving the genitourinary system Urine Culture Today R07.89 - Other chest pain, R39.9 - Unspecified symptoms and signs involving the genitourinary system H pylori Ag Stool Today R07.89 - Other chest pain Comprehensive Met. Panel Today R07.89 - Other chest pain Medications: New barium sulfate 2.1%(w/v),2.0%(w/w) Follow instructions per radiology. 900 mL 0RF rosuvastatin 10 mg PO BEDTIME 90 tabs 0RF esomeprazole magnesium (Nexium 24HR) 20 mg PO DAILY 30 tabs 0RF
[2025-04-09 10:59] VITALS: BP 100/62; PULSE 73; RESP 16; TEMP 36.6; O2SAT 98; BMI 22.6
== END 2025-04-09 12:18 | disposition home or self-care (01) ==
LOC: HO.HMCFM 10:51
PROVIDERS: PCP Physician Assistant Medical; Visit Provider Physician Assistant Medical
DX: R07.89 Other chest pain (principal); E78.00 Pure hypercholesterolemia, unspecified; L30.9 Dermatitis, unspecified; F41.9 Anxiety disorder, unspecified; F32.A Depression, unspecified; R14.0 Abdominal distension (gaseous); R63.4 Abnormal weight loss

== ENCOUNTER → 2025-04-09 10:50 | Outpatient (BNVA) | payer MEDICARE, SELFPAY | PROVIDERS: PCP Physician Assistant Medical; Visit Provider Physician Assistant Medical | DX: R07.89 Other chest pain (principal); E78.00 Pure hypercholesterolemia, unspecified; L30.9 Dermatitis, unspecified; F41.9 Anxiety disorder, unspecified; F32.A Depression, unspecified; R14.0 Abdominal distension (gaseous); R63.4 Abnormal weight loss | CPT/HCPCS: 93005; 96127; 99212 ==

== ENCOUNTER 2025-04-09 13:18 | Outpatient (REF) | payer MEDICARE, SELFPAY ==
[2025-04-09 17:48] LABS: Anion Gap 14 (12-20)
[2025-04-09 17:51] LABS: Alanine Aminotransferase 13 U/L (0-31); Albumin Level 4.4 g/dL (3.5-5.0); Alkaline Phosphatase 56 U/L (39-117); Amylase 43 U/L (28-100); Aspartate Amino Transferase 17 U/L (5-31); Bilirubin Total 1.6 mg/dL (0.0-1.0); Blood Urea Nitrogen 15 mg/dL (9-16); Calcium 9.2 mg/dL (8.4-10.2); Carbon Dioxide 26 mmol/L (22-29); Chloride 100 mmol/L (96-108); Estimated Glomerular Filt Rate > 60; Glucose Random 97 mg/dL (60-115); Lipase 25 U/L (8-78); Potassium 3.8 mmol/L (3.3-5.1); Sodium 136 mmol/L (135-145); Total Protein 6.5 g/dL (6.5-8.0)
[2025-04-09 17:59] LABS: B Type Natriuretic Peptide 22 pg/mL (<100); Troponin-I High Sensitivity < 2.7 ng/L (<3.5-17.0)
[2025-04-09 18:05] LABS: D Dimer High Sensitivity < 150 NG/ML
== END 2025-04-09 13:19 | disposition home or self-care (01) ==
LOC: HO.WFDLDS 13:18
PROVIDERS: Visit Provider Physician Assistant Medical
DX: R07.89 Other chest pain (principal)
CPT/HCPCS: 36415; 80053; 82150; 83690; 83880; 84484; 85379

== ENCOUNTER 2025-04-14 11:35 | Outpatient (REF) | payer MEDICARE, SELFPAY ==
[2025-04-14 11:44] LABS: Appearance Urine Clear; Color Urine Yellow; Glucose Urine UA Negative (Negative); Leukocyte Esterase Urine Trace (Negative); Nitrite Urine Positive (Negative); PH 6.5 (5.0-9.0); Specific Gravity - Urine <= 1.005 (1.005-1.025); UMIC TRIGGER UA YES; Urine Blood Trace (Negative); Urine Ketones Negative (Negative); Urine Protein Negative (Neg-Trace)
[2025-04-14 11:50] LABS: Bacteria Urine 4+ (None Seen); Hyaline Casts Urine 0-2 /LPF (0-2); RBC Urine 0-2 /HPF (0-2); Squamous Epithelial Cell Urine 0-2 /HPF (0-2); WBC Urine 0-5 /HPF (0-5)
== END 2025-04-14 11:36 | disposition home or self-care (01) ==
LOC: HO.LNP 11:35
PROVIDERS: Visit Provider Physician Assistant Medical
DX: R39.9 Unspecified symptoms and signs involving the genitourinary system (principal); R07.89 Other chest pain
CPT/HCPCS: 81001; 87086; 87088; 87186; 87338

== ENCOUNTER 2025-05-07 11:47 | Outpatient (REF) | payer MEDICARE, SELFPAY ==
[2025-05-07 16:38] LABS: Anion Gap 11 (12-20); Blood Urea Nitrogen 10 mg/dL (9-16); Calcium 8.8 mg/dL (8.4-10.2); Carbon Dioxide 26 mmol/L (22-29); Chloride 105 mmol/L (96-108); Estimated Glomerular Filt Rate > 60; Potassium 4.1 mmol/L (3.3-5.1); Sodium 138 mmol/L (135-145)
== END 2025-05-07 11:48 | disposition home or self-care (01) ==
LOC: HO.WFDLDS 11:47
PROVIDERS: Visit Provider Physician Assistant Medical
DX: R63.4 Abnormal weight loss (principal)
CPT/HCPCS: 36415; 80048

== ENCOUNTER 2025-05-18 10:52 | Outpatient (AMB) | payer MEDICARE, SELFPAY ==
--- NOTE | 2025-05-18 10:58 | MHC.PC.OV ---
Vital Signs 05/18/25 11:03 Height 5 ft 2 in Weight 124 lb BMI 22.7 BP 118/82 Blood Pressure Location Rt brachial Position Sitting Pulse 60 Pulse Source Pulse Oximeter Temp 97.9 F Temp Source Temporal Artery Scan Pulse Oximetry (%) 100 Oxygen Delivery Method Room Air Intake Visit Reasons: 30 min follow up multiple concerns Intake Note: Yvrose presents in the office today for a follow up. Patient has CT Scan scheduled for tomorrow. Allergies No Known Allergies Allergy (Verified 05/18/25 11:00) Tobacco use date assessed: 05/18/25 Dental Screening Dental Screen Date: 05/18/25 Did you have a dental visit in the last 12 months?: Yes Did you have a dental problem in the last 6 months where you did not have access to dental care?: No Was dental information given to patient?: Patient has dentist HPI HPI Comments History of Present Illness Details This is a 69-year-old female with a past medical history of anxiety with depression, vitamin-D deficiency, chronic dermatitis, osteopenia, hyperlipidemia, IBS and frequent UTIs presenting for follow up. She saw me recently for concerns of dizziness, chest pressure, weight loss, anxiety and depression and ongoing rash. Since our last visit she tried to connect with a therapist, but there was a lot of back and forth, and ultimately she decided not to proceed. Instead she started yoga and meditation, and this has provided significant benefit to the patient. Dizziness and lightheadedness resolved. No further episodes of chest pressure. She has gained a lb back. Bloating is better. She had spoken about this with her sales agent trading stamps, Rodrigue Lo, in relation to IBS. Colonoscopy is up-to-date. She takes Culturelle. CT of the abdomen and pelvis with contrast is scheduled tomorrow at [facility]. She has a cardiac stress test and echocardiogram scheduled. She started rosuvastatin 10 mg at bedtime for hyperlipidemia. She denies side effects. Nonsmoker. Endorses a family history of high cholesterol. She is seeing [facility] Dermatology for ongoing dermatitis. Treatments attempted include cephalexin, mupirocin, prednisone, oral treatment for scabies. She was just started on Dupixent, and the rash does seem to have calmed down. She has a follow up scheduled. She had blood work done yesterday which showed mild leukopenia at 3.7 and red blood cell count 3.93, normal hemoglobin 12.6, hematocrit 37.7, platelets 254,000. Iron and ferritin normal. AST and ALT and B12 normal. She is followed by Urogynecology, Dr. Brice, for recurrent UTIs. She is on methenamine prophylactically. ROS: Constitutional: No fevers, chills or night sweats Eyes: No vision changes, blurry vision, double vision, eye pain. Respiratory: No shortness of breath, cough or sputum production. Cardiovascular: No palpitations or pedal edema Gastrointestinal: No anorexia, nausea, blood in stools or abdominal pain. See HPI Genitourinary: No dysuria, hematuria, urinary frequency. Neurologic: No headache, blackout, seizures, tremors, syncope, unilateral weakness, ataxia, numbness or tingling in the extremities. Hematologic/Lymphatics: No bleeding or bruising. Skin: see HPI Endocrine: No cold or heat intolerance. No polyuria or polydipsia. Psychiatric: No SI/HI. Physical exam: Constitutional: Alert, in no distress. Neck: Supple, Full range of motion. No lymphadenopathy. No palpable thyroid masses. Respiratory: Clear to auscultation. Cardiovascular: S1 S2 regular. No murmurs. No carotid bruits. Chest: Nontender Gastrointestinal: Abdomen soft, non-tender, non-distended. Normal bowel sounds. No palpable masses. Neurologic: No focal neurological deficits Skin: Excoriated papular rash on the trunk which appears less erythematous than the previous visit Psychiatric: Normal mood and affect [facility] Medical History (Updated 04/09/25 @ 14:07 by WILLIS Marrero) Weight loss Abdominal bloating Chest pressure Anxiety and depression Vitamin D deficiency Longitudinal striation of nail Medicare annual wellness visit, subsequent Multiple joint pain Dermatitis Pure hypercholesterolemia Abnormal CBC Osteopenia Dense breast tissue Frequent UTI Insomnia Cataract Irritable bowel syndrome (IBS) Surgical History H/O bilateral cataract extraction Family History Father Alcohol abuse Cancer Sister Cancer Social History (Updated 05/18/25 @ 11:03 by Alice Corrales MA) Housing: House Alcohol intake: current Patient Tobacco Use Status: Never used Tobacco e-Cigarette/Vaping Use: Never Used Second Hand Smoke Exposure: No service: No Current occupational status: retired Current occupational exposures/hazards: No Cognitive needs: No Hearing needs: No Vision needs: Yes Questionnaire Thrive Questionnaire Date Thrive assessed: 01/08/25 I am a: Patient What is your living situation today?: I have a steady place to live Within the past 12 months, did the food you bought not last and you didn't have the money to get more?: Never true Within the past 12 months, did you worry whether your food would run out before you got money to buy more?: Never true Do you have trouble paying for medicines?: No Do you have trouble getting transportation to medical appointments?: No Do you have trouble paying your heating and electricity bill?: No Do you have trouble taking care of your child, family member or friend?: No Do you have trouble with day-to-day activities such as bathing, preparing meals, shopping, managing finances, etc.?: No Are you currently unemployed and looking for a job?: No Are you interested in more education?: No Please select the resources that you would like help with: None Currently or been in a relationship where the following occur: No concerns reported THRIVE Score: 0 WADE-7 AMB Questionnaire WADE-7 Date WADE - 7 assessed: 04/09/25 Source: Developed by Drs. Jose Chong, Jacqueline Rice, Clarence Alba and colleagues, with an educational sal from [employer]. Physical exam (Primary Care) Vital Signs: Last Vital Signs Temp 97.9 F 05/18/25 11:03 Pulse 60 05/18/25 11:03 BP 118/82 05/18/25 11:03 Pulse Ox 100 05/18/25 11:03 Oxygen Delivery Method Room Air 05/18/25 11:03 BMI result Body Mass Index 22.7 Tobacco/Smoking Status: Tobacco use Status Tobacco use date assessed 05/18/25 05/18/25 11:10 Patient Tobacco Use Status Never used Tobacco 05/18/25 11:03 e-Cigarette/Vaping Use Never Used 05/18/25 11:03 Thrive Assessment: Date of Thrive Assessment Date Thrive assessed 01/08/25 05/18/25 10:59 Currently or been in a relationship where the following occur: No concerns reported Coding Level of Care Code Est Pt Level 4 (46041) Complex EM visit Add On G2211 Diagnoses Chest pressure R07.89 Pure hypercholesterolemia E78.00 Dermatitis L30.9 Anxiety and depression F41.9; F32.A Abdominal bloating R14.0 Weight loss R63.4 Abnormal CBC R79.89 Assessment & Plan Assessment & Plan (1) Chest pressure: Code(s): R07.89 - Other chest pain Category: Medical (2) Pure hypercholesterolemia: Code(s): E78.00 - Pure hypercholesterolemia, unspecified Category: Medical (3) Dermatitis: Code(s): L30.9 - Dermatitis, unspecified Category: Medical (4) Anxiety and depression: Code(s): F41.9 - Anxiety disorder, unspecified; F32.A - Depression, unspecified Category: Medical (5) Abdominal bloating: Code(s): R14.0 - Abdominal distension (gaseous) Category: Medical (6) Weight loss: Code(s): R63.4 - Abnormal weight loss Category: Medical (7) Abnormal CBC: Code(s): R79.89 - Other specified abnormal findings of blood chemistry Category: Medical Plan 69-year-old female presenting for follow up appointment regarding chest pressure, ongoing dermatitis and abdominal bloating with weight loss. Reassuring that chest pressure has not returned. Proceed with echo and stress test given risk factors for cardiovascular disease. Continue rosuvastatin 10 mg nightly for hyperlipidemia. She will return after 8-10 weeks on the medicine to check a lipid profile and LFTs. We will also repeat her CBC given leukopenia. This could be related to chronic dermatitis and medications she was taking to treat it. She is going to follow up with Dermatology regarding chronic dermatitis. She will have the CT of the abdomen and pelvis completed tomorrow. Discussed anxiety and depression may be contributing to these symptoms. This can manifest physically, but I want to rule out underlying causes. She declines therapy at this time. She will continue meditation and yoga. Follow up in 2 months. Orders: Orders Aspartate Amino Transferase 05/18/25 E78.00 - Pure hypercholesterolemia, unspecified Alanine Aminotransferase 05/18/25 E78.00 - Pure hypercholesterolemia, unspecified Lipid Panel 05/18/25 E78.00 - Pure hypercholesterolemia, unspecified, E78.5 - Hyperlipidemia, unspecified Pathologist Review - CBC 05/18/25 L30.9 - Dermatitis, unspecified, R79.89 - Other specified abnormal findings of blood chemistry Complete Blood Count Auto Diff 05/18/25 L30.9 - Dermatitis, unspecified, R79.89 - Other specified abnormal findings of blood chemistry Medications: Discontinued ciprofloxacin HCl Discontinued Reason: Doctor's Order 250 mg PO BID 5 days 10 tabs 0RF esomeprazole magnesium (Nexium 24HR) Discontinued Reason: Doctor's Order 20 mg PO DAILY 30 tabs 0RF
[2025-05-18 11:03] VITALS: BP 118/82; PULSE 60; TEMP 36.6; O2SAT 100; BMI 22.7
== END 2025-05-18 11:39 | disposition home or self-care (01) ==
LOC: HO.HMCFM 10:53
PROVIDERS: PCP Physician Assistant Medical; Visit Provider Physician Assistant Medical
DX: R07.89 Other chest pain (principal); E78.00 Pure hypercholesterolemia, unspecified; L30.9 Dermatitis, unspecified; F41.9 Anxiety disorder, unspecified; F32.A Depression, unspecified; R14.0 Abdominal distension (gaseous); R63.4 Abnormal weight loss; R79.89 Other specified abnormal findings of blood chemistry

== ENCOUNTER → 2025-05-18 10:52 | Outpatient (BNVA) | payer MEDICARE, SELFPAY | PROVIDERS: PCP Physician Assistant Medical; Visit Provider Physician Assistant Medical | DX: R07.89 Other chest pain (principal); E78.00 Pure hypercholesterolemia, unspecified; L30.9 Dermatitis, unspecified; F41.9 Anxiety disorder, unspecified; F32.A Depression, unspecified; R14.0 Abdominal distension (gaseous); R63.4 Abnormal weight loss; R79.89 Other specified abnormal findings of blood chemistry; Z79.899 Other long term (current) drug therapy | CPT/HCPCS: 99212 ==

== ENCOUNTER 2025-05-19 08:20 | Outpatient (REF) | payer MEDICARE, SELFPAY ==
--- NOTE | ~2025-05-19 | CT_ITS ---
CLINICAL HISTORY: R14.0 - Abdominal distension (gaseous) CT abdomen and pelvis with contrast Comparison: None provided Findings: No consolidation or effusion. The gallbladder and solid organs are within normal limits. No renal stones. Moderate volume of stool throughout the colon. No evidence of bowel obstruction. There is enteric contrast within the small bowel and large bowel to the hepatic flexure. Appendix is normal. Indeterminate heterogeneous enhancement and possible cystic lesion in the right adnexa. The possible cystic component measures 1.3 x 1 cm. There are questionable associated calcifications. Pelvic ultrasound is recommended for further evaluation. The bones are intact. IMPRESSION: 1. Moderate volume of stool throughout the colon. No evidence of bowel obstruction. 2. Indeterminate heterogeneous enhancement and possible cystic lesion in the right adnexa. The possible cystic component measures 1.3 x 1 cm. There are questionable associated calcifications. Pelvic ultrasound is recommended for further evaluation. This document has been electronically signed by: Gibran Costa DO on 05/20/2025 09:45:05
[2025-05-19] MEDS: iohexoL 350 MG/ML 100 ML INFUS..BTL IV (09:22)
== END 2025-05-19 08:21 | disposition home or self-care (01) ==
LOC: HO.CT 08:20
PROVIDERS: PCP Physician Assistant Medical; Visit Provider Physician Assistant Medical
DX: R14.0 Abdominal distension (gaseous) (principal); R63.4 Abnormal weight loss; E78.00 Pure hypercholesterolemia, unspecified
CPT/HCPCS: 74177; Q9967

== ENCOUNTER → 2025-05-19 08:28 | Outpatient (BNV) | payer MEDICARE, SELFPAY | PROVIDERS: PCP Physician Assistant Medical; Visit Provider Family Medicine | DX: R14.0 Abdominal distension (gaseous) (principal) | CPT/HCPCS: 74177 ==

== ENCOUNTER 2025-06-01 12:53 | Outpatient (REF) | payer MEDICARE, SELFPAY ==
--- NOTE | ~2025-06-01 | US_ITS ---
CLINICAL HISTORY: N83.9 - Noninflammatory disorder of ovary, fallopian tube and broad liga... US pelvis transvaginal Comparison: CT/SR - CT ABDOMEN PELVIS W IV CON - 05/19/25 08:39 EDT Findings: Transvaginal scanning performed. Anteverted uterus is 6.8 cm length. There are some calcifications within the myometrium. No suspicious lesion. No endometrial lesion, 2 mm thickness. Right ovary 2.4 x 1.6 x 2.0 cm. Left ovary 1.7 x 1.2 x 1.1 cm. Bilateral ovarian calcifications without discrete mass. No correlate to the lesion seen on the prior CT. Normal color Doppler of both ovaries. No free fluid. IMPRESSION: 1. Unremarkable uterus and left ovary. 2. Calcification seen within the right ovary. No measurable mass. No correlate to the lesion seen on the patient's prior CT. Consider MRI. 2. Normal endometrial thickness. This document has been electronically signed by: Meka Amaya MD on 06/02/2025 09:14:01
== END 2025-06-01 12:54 | disposition home or self-care (01) ==
LOC: HO.US 12:53
PROVIDERS: PCP Physician Assistant Medical; Visit Provider Physician Assistant Medical
DX: N83.9 Noninflammatory disorder of ovary, fallopian tube and broad ligament, unspecified (principal)
CPT/HCPCS: 76830; 76856

== ENCOUNTER → 2025-06-01 12:55 | Outpatient (BNV) | payer MEDICARE, SELFPAY | PROVIDERS: PCP Physician Assistant Medical; Visit Provider Radiology Diagnostic Radiology | DX: N83.8 Other noninflammatory disorders of ovary, fallopian tube and broad ligament (principal) | CPT/HCPCS: 76830; 76856 ==

== ENCOUNTER → 2025-06-11 09:20 | Outpatient (REF) | payer MEDICARE, SELFPAY ==
--- NOTE | ~2025-06-11 | NM_ITS ---
EXERCISE MYOCARDIAL PERFUSION STUDY INDICATION: Chest pain with abnormal EKG to evaluate for myocardial ischemia c TECHNIQUE: The patient was brought in for an exercise perfusion study on 06/11/2025. Patient performed exercise as per Hamilton protocol and was injected 25 mCi of sestamibi once target heart rate was achieved. Images were obtained using the SPECT gamma camera interlaced with the gating device. Images were obtained in supine position. Resting perfusion study was performed on 06/12/2025. Patient was administered 25 mCi of sestamibi intravenously at rest. Images were then obtained in supine position. Images obtained without without CT attenuation. Total DLP 71 mGy-cm. Images were processed with the software and compared side to side in short axis, horizontal long axis and vertical long axis views. FINDINGS: Raw images were reviewed The stress perfusion study showed both attenuated as well as nonattenuated corrected images show normal uptake of radiotracer in all segments of the LV myocardium. The gated study shows normal LV systolic function with calculated LVEF of greater than 70%. LV cavity is normal in size. The gated study shows normal systolic wall thickening and contraction of segments. Resting study shows nonattenuated images show normal uptake of radiotracer in all segments of the LV myocardium. Gating at rest reveals normal systolic wall motion with ejection fraction at 65%. The findings are consistent with normal myocardial perfusion. NM/NM cardiolite stress test IMPRESSION: 1. Myocardial perfusion imaging study shows normal myocardial perfusion. 2. Gated LVEF is 65%. 3. Transient ischemic dilatation not present. EKG revealed negative for ischemia. Electronically signed by: Keaton Wilson MD 06/15/2025 05:45 PM EDT
--- NOTE | 2025-06-11 09:22 | CA_ITS ---
Acquisition Time: 2025-06-11 09:32:32 Total Exercise Time: 00:05:05 Test Indications: chest discomfort, dizziness,. abn. ekg. Medications: see med sheet Protocol: HENNA Max HR: 153 BPM 100% of Pred: 153 BPM Max BP: 136/66 mmHG Max Work Load: 7.0 METS Exercise stress test with exercise 5 mins 5 secs of Henna Protocol, achieving 100% MPHR, with reports of mld fatigue, no chest pain, with isolated PACs and PVCs, with normotensive response to exercise. Without any EKG changes meeting criteria for ischemia. In recovery, pt feeling back to baseline. Nuclear images pending. Test reviewed with Dr. Leonard. Referred By: Libby Gunderson Electronically Signed By: Marcellus Segura
== END ==
LOC: HO.CARD 09:20
PROVIDERS: PCP Physician Assistant Medical; Visit Provider Physician Assistant Medical
DX: R07.89 Other chest pain (principal); R94.31 Abnormal electrocardiogram [ECG] [EKG]; R42 Dizziness and giddiness
CPT/HCPCS: 78452; 93017; A9500

== ENCOUNTER → 2025-06-11 09:22 | Outpatient (BNV) | payer MEDICARE, SELFPAY | PROVIDERS: PCP Physician Assistant Medical | DX: R07.9 Chest pain, unspecified (principal); R94.31 Abnormal electrocardiogram [ECG] [EKG] | CPT/HCPCS: 78452; 93016; 93018 ==

== ENCOUNTER → 2025-07-26 13:22 | Outpatient (BNV) | payer MEDICARE, SELFPAY | PROVIDERS: PCP Physician Assistant Medical; Visit Provider Radiology Diagnostic Radiology | DX: N83.201 Unspecified ovarian cyst, right side (principal) | CPT/HCPCS: 72197 ==

== ENCOUNTER 2025-07-26 13:28 | Outpatient (REF) | payer MEDICARE, SELFPAY ==
--- NOTE | ~2025-07-26 | MR_ITS ---
EXAMINATION: MR PELVIS WITHOUT THEN WITH IV CONTRAST HISTORY: N83.9 - Noninflammatory disorder of ovary, fallopian tube and broad liga.... TECHNIQUE: Axial T1, fat-suppressed T1, and fat suppressed T2, and sagittal and coronal T2-weighted MR images of the pelvis were obtained. Subsequently, sagittal and axial fat-suppressed T1-weighted images were obtained after the intravenous administration of 5.5 mL Gadavist. COMPARISON: Correlation is made with a CT of the pelvis with contrast dated 05/19/2025 and a pelvic ultrasound dated 06/01/2025. FINDINGS: The uterus measures 7.4 x 2.7 x 4.8 cm. No fibroids are identified. The endometrium is unremarkable. There is no thickening of the junctional zone. The cervical stroma is intact. The right ovary measures 2.7 x 2.1 x 2.3 cm and demonstrates multiple cysts measuring up to 1.4 cm in diameter. There is wall thickening of one of the cysts which demonstrates decreased T2 signal intensity within the wall which may represent hemosiderin. There is no internal nodular soft tissue. The left ovary measures 1.7 x 1.3 x 1.2 cm and is unremarkable. No ascites or pelvic lymphadenopathy is identified. The urinary bladder is collapsed. There are multiple perineural (Tarlov) cysts sacrum. MR/MR pelvis wo/w con IMPRESSION: Right ovarian cysts measuring up to 1.4 cm in size. There is wall thickening of one of the cysts with possible hemosiderin within the wall. This likely represents a low risk lesion. Follow-up is suggested. Electronically signed by: Jose Patel MD 07/27/2025 08:26 AM EDT
== END 2025-07-26 13:29 | disposition home or self-care (01) ==
LOC: HO.MRI 13:28
PROVIDERS: PCP Physician Assistant Medical; Visit Provider Physician Assistant Medical
DX: N83.9 Noninflammatory disorder of ovary, fallopian tube and broad ligament, unspecified (principal)
CPT/HCPCS: 72197; A9585

== ENCOUNTER 2025-08-20 14:23 | Outpatient (AMB) | payer MEDICARE, SELFPAY ==
--- NOTE | 2025-08-20 14:30 | A.OFFPC_ITS ---
Vital Signs 08/20/25 14:37 Height 5 ft 2 in Weight 130 lb BMI 23.8 BP 114/74 Blood Pressure Location Lt brachial Position Sitting Respiration 16 Pulse 74 Pulse Source Pulse Oximeter Temp 97.7 F Temp Source Temporal Artery Scan Pulse Oximetry (%) 97 Oxygen Delivery Method Room Air Intake Visit Reasons: 30 minutes follow up Intake Note: Yvrose presents in the office today for a 30 minute follow up. Allergies No Known Allergies Allergy (Verified 08/20/25 14:34) Medication List - Last Reconciled 08/20/25 by WILLIS Marrero cholecalciferol (vitamin D3) (Vitamin D3) 2,000 units PO DAILY methenamine hippurate 1 g PO BID rosuvastatin 10 mg PO BEDTIME Tobacco use date assessed: 08/20/25 Dental Screening Dental Screen Date: 08/20/25 Did you have a dental visit in the last 12 months?: Yes Did you have a dental problem in the last 6 months where you did not have access to dental care?: No Was dental information given to patient?: Patient has dentist HPI HPI Comments History of Present Illness Details This is a 69-year-old female with a past medical history of anxiety with depression, vitamin-D deficiency, chronic dermatitis, osteopenia, hyperlipidemia, IBS and frequent UTIs presenting for follow up. She had a CT scan, pelvic u/s and more recently MRI which showed right ovarian cysts possibly consistent with endometriosis. Patient reveals today she has a history of this. She wonders if it could be related to symptoms like IBS. Bloating is better. She had spoken about this with her high school academic coach, Rodrigue Lo, in relation to IBS. Colonoscopy is up-to-date. She takes Culturelle. CT of the abdomen and pelvis showed no intestinal abnormalities. Hyperlipidemia-Started Rosuvastatin and denies side effects. She had a negative stress test this year. Her last lsb tests demonstrated leukopenia at 3.7 and red blood cell count 3.93, normal hemoglobin 12.6, hematocrit 37.7, platelets 254,000. Iron and ferritin normal. AST and ALT and B12 normal. She is followed by Urogynecology, Dr. Brice, for recurrent UTIs. She is on me thenamine prophylactically. Received flu vaccine. ROS: Constitutional: No fevers, chills or night sweats Eyes: No vision changes, blurry vision, double vision, eye pain. Respiratory: No shortness of breath, cough or sputum production. Cardiovascular: No palpitations or pedal edema Gastrointestinal: No anorexia, nausea, blood in stools or abdominal pain. Genitourinary: No dysuria, hematuria, urinary frequency. Hematologic/Lymphatics: No bleeding or bruising. Endocrine: No cold or heat intolerance. No polyuria or polydipsia. Physical exam: Constitutional: Alert, in no distress. Neck: Supple, Full range of motion. No lymphadenopathy. No palpable thyroid masses. Respiratory: Clear to auscultation. Cardiovascular: S1 S2 regular. No murmurs. No carotid bruits. Psychiatric: Normal mood and affect [facility] Medical History (Updated 08/20/25 @ 14:55 by WILLIS Marrero) History of endometriosis Right ovarian cyst Lesion of right ovary Weight loss Abdominal bloating Chest pressure Anxiety and depression Vitamin D deficiency Longitudinal striation of nail Medicare annual wellness visit, subsequent Multiple joint pain Dermatitis Pure hypercholesterolemia Abnormal CBC Osteopenia Dense breast tissue Frequent UTI Insomnia Cataract Irritable bowel syndrome (IBS) Surgical History H/O bilateral cataract extraction Family History Father Alcohol abuse Cancer Sister Cancer Social History (Updated 08/20/25 @ 14:37 by Alice Corrales CMA) Housing: House Alcohol intake: current Patient Tobacco Use Status: Never used Tobacco e-Cigarette/Vaping Use: Never Used Second Hand Smoke Exposure: No Use of substances other than those prescribed or required for medical reasons: No service: No Current occupational status: retired Current occupational exposures/hazards: No Cognitive needs: No Hearing needs: No Vision needs: Yes Questionnaire Thrive Questionnaire Date Thrive assessed: 01/08/25 I am a: Patient What is your living situation today?: I have a steady place to live Within the past 12 months, did the food you bought not last and you didn't have the money to get more?: Never true Within the past 12 months, did you worry whether your food would run out before you got money to buy more?: Never true Do you have trouble paying for medicines?: No Do you have trouble getting transportation to medical appointments?: No Do you have trouble paying your heating and electricity bill?: No Do you have trouble taking care of your child, family member or friend?: No Do you have trouble with day-to-day activities such as bathing, preparing meals, shopping, managing finances, etc.?: No Are you currently unemployed and looking for a job?: No Are you interested in more education?: No Please select the resources that you would like help with: None Currently or been in a relationship where the following occur: No concerns reported THRIVE Score: 0 WADE-7 AMB Questionnaire WADE-7 Date WADE - 7 assessed: 04/09/25 Source: Developed by Drs. Jose Chong, Jacqueline Rice, Clarence Alba and colleagues, with an educational sal from [employer]. Physical exam (Primary Care) Vital Signs: Last Vital Signs Temp 97.7 F 08/20/25 14:37 Pulse 74 08/20/25 14:37 Resp 16 08/20/25 14:37 BP 114/74 08/20/25 14:37 Pulse Ox 97 08/20/25 14:37 Oxygen Delivery Method Room Air 08/20/25 14:37 BMI result Body Mass Index 23.8 Tobacco/Smoking Status: Tobacco use Status Tobacco use date assessed 08/20/25 08/20/25 14:39 Patient Tobacco Use Status Never used Tobacco 08/20/25 14:37 e-Cigarette/Vaping Use Never Used 08/20/25 14:37 Thrive Assessment: Date of Thrive Assessment Date Thrive assessed 01/08/25 08/20/25 14:32 Currently or been in a relationship where the following occur: No concerns reported Coding Level of Care Code Est Pt Level 4 (17317) Complex EM visit Add On G2211 Diagnoses Pure hypercholesterolemia E78.00 Right ovarian cyst N83.201 History of endometriosis Z87.42 Abnormal CBC R79.89 Assessment & Plan Assessment & Plan (1) Pure hypercholesterolemia: Code(s): E78.00 - Pure hypercholesterolemia, unspecified Category: Medical Plan: She follows a low cholesterol diet and exercises. Nonsmoker. Check lipid panel. Continue Rosuvastatin. (2) Right ovarian cyst: Code(s): N83.201 - Unspecified ovarian cyst, right side Category: Medical Plan: Appearance was suspicious for endometriosis. She has been referred to director aeronautics commission ecology. (3) History of endometriosis: Code(s): Z87.42 - Personal history of other diseases of the female genital tract Category: Medical (4) Abnormal CBC: Code(s): R79.89 - Other specified abnormal findings of blood chemistry Category: Medical Plan: Check labs. Refer to heme for worsening CBC. Plan Follow up in 6 months for annual exam.
[2025-08-20 14:37] VITALS: BP 114/74; PULSE 74; RESP 16; TEMP 36.5; O2SAT 97; BMI 23.8
== END 2025-08-20 15:15 | disposition home or self-care (01) ==
LOC: HO.HMCFM 14:23
PROVIDERS: PCP Physician Assistant Medical; Visit Provider Physician Assistant Medical
DX: E78.00 Pure hypercholesterolemia, unspecified (principal); N83.201 Unspecified ovarian cyst, right side; Z87.42 Personal history of other diseases of the female genital tract; R79.89 Other specified abnormal findings of blood chemistry

== ENCOUNTER → 2025-08-20 14:23 | Outpatient (BNVA) | payer MEDICARE, SELFPAY | PROVIDERS: PCP Physician Assistant Medical; Visit Provider Physician Assistant Medical | DX: E78.00 Pure hypercholesterolemia, unspecified (principal); N83.201 Unspecified ovarian cyst, right side; R79.89 Other specified abnormal findings of blood chemistry; Z87.42 Personal history of other diseases of the female genital tract; Z87.440 Personal history of urinary (tract) infections; Z79.899 Other long term (current) drug therapy | CPT/HCPCS: 99212 ==

== ENCOUNTER 2025-08-21 11:20 | Outpatient (REF) | payer MEDICARE, SELFPAY ==
[2025-08-21 14:42] LABS: MANUAL DIFF FLAG NO
[2025-08-21 14:49] LABS: Hematocrit 38.1 % (37.0-47.0); Hemoglobin 12.5 g/dl (12.0-16.0); Imm Gran Abs Auto 0.00 X10*3/uL (0.00-0.03); Imm Gran Pct Auto 0.0 % (0.0-0.4); Lymphocytes Absolute Auto 1.5 X10*3/uL (1.2-4.9); Mean Corpuscular HGB Conc 32.8 g/dl (31.0-35.0); Mean Corpuscular Hemoglobin 31.3 pg (27.0-33.0); Mean Corpuscular Volume 95.3 fL (80.0-98.0); NRBC Abs Auto 0.000 X10*3/uL (0.0-0.012); NRBC Pct Auto 0.0 /100WBC (0.0-0.2); Platelet Count 281 X10*3/uL (160-400); Red Blood Count 4.00 X10*6/uL (4.20-5.50); White Blood Count 4.0 X10*3/uL (4.8-10.8)
[2025-08-21 15:40] LABS: Alanine Aminotransferase 21 U/L (0-31); Aspartate Amino Transferase 24 U/L (5-31); Cholesterol 231 mg/dL (<200); HDL Cholesterol 80 mg/dL (>40); Triglycerides 47 mg/dL (<150)
== END 2025-08-21 11:21 | disposition home or self-care (01) ==
LOC: HO.WFDLDS 11:20
PROVIDERS: Visit Provider Physician Assistant Medical
DX: E78.5 Hyperlipidemia, unspecified (principal); L30.9 Dermatitis, unspecified; R79.89 Other specified abnormal findings of blood chemistry; E78.00 Pure hypercholesterolemia, unspecified
CPT/HCPCS: 80061; 84450; 84460; 85025

== ENCOUNTER 2025-09-08 11:46 | Outpatient (AMB) | payer MEDICARE, SELFPAY ==
[2025-09-08 11:54] VITALS: BP 112/82; BMI 23.8
--- NOTE | 2025-09-08 11:54 | MHC.OFFVIS ---
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 No vaginal bleeding no other concerns 06/02/2025 pelvic ultrasound showed the following: IMPRESSION: 1. Unremarkable uterus and left ovary. 2. Calcification seen within the right ovary. No measurable mass. No correlate to the lesion seen on the patient's prior CT. Consider MRI. 2. Normal endometrial thickness. 05/22 CT scan of abdomen and pelvis with IV contrast showed the following IMPRESSION: 1. Moderate volume of stool throughout the colon. No evidence of bowel obstruction. 2. Indeterminate heterogeneous enhancement and possible cystic lesion in the right adnexa. The possible cystic component measures 1.3 x 1 cm. There are questionable associated calcifications. Pelvic ultrasound is recommended for further evaluation. 07/27/2025 pelvic MRI showed the following: IMPRESSION: Right ovarian cysts measuring up to 1.4 cm in size. There is wall thickening of one of the cysts with possible hemosiderin within the wall. This likely represents a low risk lesion. Follow-up is suggested. [facility] Medical History History of endometriosis Right ovarian cyst Lesion of right ovary Weight loss Abdominal bloating Chest pressure Anxiety and depression Vitamin D deficiency Longitudinal striation of nail Medicare annual wellness visit, subsequent Multiple joint pain Dermatitis Pure hypercholesterolemia Abnormal CBC Osteopenia Dense breast tissue Frequent UTI Insomnia Cataract Irritable bowel syndrome (IBS) Surgical History H/O bilateral cataract extraction Family History Father Alcohol abuse Cancer Sister Cancer Social History Housing: House Alcohol intake: current Patient Tobacco Use Status: Never used Tobacco e-Cigarette/Vaping Use: Never Used Second Hand Smoke Exposure: No service: No Current occupational status: retired Current occupational exposures/hazards: No Cognitive needs: No Hearing needs: No Vision needs: Yes Review of Systems Const All systems reviewed & are unremarkable except as noted in HPI and below Physical Exam Vital Signs: Last Vital Signs BP 112/82 09/08/25 11:54 BMI result Body Mass Index 23.8 General: Yes no CVA tenderness External Female Exam: normal external appearance and normal appearance of the urethra Speculum Exam - Vagina: normal appearance of the vagina, normal palpation, no lesions and no masses Speculum Exam - Cervix: normal appearance of the cervix, normal palpation, no lesions, no masses and nontender Bimanual exam- vagina & uterus: normal bimanual exam, normal palpation, uterine size normal, normal palpation, uterine shape normal, No Cervical tenderness present and non-tender Bimanual Exam- Adnexa, other: normal adnexae Back/Spine/Pelvis Back: no CVA tenderness Assessment & Plan Assessment & Plan (1) Complex cyst of right ovary: Code(s): N83.291 - Other ovarian cyst, right side Category: Medical Plan: Discussed with the patient the ovarian cyst by ultrasound, CT scan and MRI with thickening of the wall . Discussed with the patient the Ultrasound findings, the main limitation of imaging alone as a diagnostic tool to distinguish benign from malignant masses relates to its lack of specificity and low positive predictive value for cancer. The differential diagnosis discussed with the patient includes the following but not limited to: benign and malignant gynecological and non-gynecological causes. Will order CA 125 CA 19-9, CEA Discussed with the patient's ovarian cancer tumor markers sensitivity, specificity, negative and positive predictive value detecting ovarian malignancy Discussed with the patient options of treatment including laparoscopy oophorectomy vs. expectant management with repeat imaging in repeating pelvic US in 6-12 weeks. If the ovarian complex cyst is persistent larger and / or more complex looking,will refer to gynecologic Oncology. All pros, cons, risks and benefits of each approach were discussed with the patient including but not limited to a delay in the diagnosis and treatment of ovarian cancer affecting the prognosis; The patient decided to go ahead with referral to Gyne onc now for surgical management. [facility] Gyne Onc referral placed. Appointment scheduled on 10/05/2025 Dr. Jennings, the patient is aware Instructed the patient to call our office back in case a referral appointment is not scheduled, missed or canceled so that we will assist on rescheduling another appointment, the patient verbalized understanding agreed with the plan. Orders: Orders Urine Culture 09/08/25 R31.29 - Other microscopic hematuria Carcinoembryonic Antigen 09/08/25 N83.299 - Other ovarian cyst, unspecified side Carbohydrate Antigen 19-9 09/08/25 N83.299 - Other ovarian cyst, unspecified side AMB Urinalysis Dipstick 09/08/25 R10.2 - Pelvic and perineal pain CA-125 09/08/25 N83.299 - Other ovarian cyst, unspecified side Referrals Gynecologic Oncology Referral N83.291 - Other ovarian cyst, right side Coding Level of Care Code Est Pt Level 3 (57866) Diagnoses Complex cyst of right ovary N83.291
== END 2025-09-08 14:13 | disposition home or self-care (01) ==
LOC: HO.HWS 11:46
PROVIDERS: PCP Physician Assistant Medical; Visit Provider Obstetrics & Gynecology
DX: N83.291 Other ovarian cyst, right side (principal)
CPT/HCPCS: 99213

== ENCOUNTER 2025-09-08 11:46 | Outpatient (REF) | payer MEDICARE, SELFPAY ==
[2025-09-08 14:55] LABS: Carcinoembryonic Antigen 2.10 ng/mL
[2025-09-09 08:34] LABS: CA-125 8 U/mL (<35)
== END 2025-09-08 11:47 | disposition home or self-care (01) ==
LOC: HO.LAB 11:46
PROVIDERS: PCP Physician Assistant Medical; Visit Provider Obstetrics & Gynecology
DX: N83.291 Other ovarian cyst, right side (principal)
CPT/HCPCS: 36415; 82378; 86301; 86304; 87086; 99212